=== PATIENT | female | born 1990 | race Hispanic/Latino ===

== ENCOUNTER 2020-04-19 04:10 | Emergency (ER) | payer OTHER ==
[~2020-04-19] VITALS: Ht 162.6 cm; Wt 93.9 kg
[2020-04-19] MEDS: SODIUM CHLORIDE 0.9% 1000ML 2,000 ML IV STA (04:35)
[2020-04-19] MEDS ORDERED: SODIUM CHLORIDE 0.9% 1000ML 1,000 ML ONE ×2 (04:36→05:05)
[2020-04-19 07:00] VITALS: BP 106/67
== END 2020-04-19 07:00 | disposition left against medical advice (07) ==
LOC: FSED 04:34
DX: O03.9 Complete or unspecified spontaneous abortion without complication (principal); O46.91 Antepartum hemorrhage, unspecified, first trimester; E03.9 Hypothyroidism, unspecified; F32.9 Major depressive disorder, single episode, unspecified
CPT/HCPCS: 80053; 85025; 99284; J7030